=== PATIENT | female | born 1950 | race Caucasian/White ===

== ENCOUNTER → 2016-12-18 | Outpatient (CLI) | payer MEDICARE, OTHER ==
[~2016-12-18] MED LIST: ATOR40TA70 PO; CRAN500T2 PO; GLUC-144 PO; HYDR12.56 PO; LEVO112T55 PO; MULT-178 PO; OMEP-254 PO; OXYC-202 PO; QUIN20TA27 PO; RT-ALBUINH IH
--- NOTE | 2016-12-19 17:24 | Diagnostic Imaging Report ---
EXAMINATION: Bilateral digital screening mammogram with CAD. The current study was also evaluated with a Computer Aided Detection (CAD) system. INDICATION: Screening. No current complaints stated on the questionnaire. COMPARISON: 11/02/14. FINDINGS: The breasts are composed of heterogenously dense parenchyma which may decrease mammographic sensitivity. Occasional benign-appearing calcifications are seen. Stable circumscribed oval nodule in the inferior medial periareolar region in the left breast is without change from 2015 exam, likely a cyst. Allowing for technique and positional differences, no suspicious change is seen. IMPRESSION: Dense breasts with no definite change. ACR BI-RADS Category 2: Benign findings. Result letter will be mailed to the patient. Note: At least 10% of breast cancer is not imaged by mammography. Dictated by: Dictated on workstation # [id number]
== END ==
LOC: RAD 15:15
PROVIDERS: ATTEND Internal Medicine
DX: Z12.31 Encounter for screening mammogram for malignant neoplasm of breast (principal)
CPT/HCPCS: 77067

== ENCOUNTER → 2017-06-06 | Outpatient (CLI) | payer MEDICARE, OTHER ==
[~2017-06-06] MED LIST changes: +QUIN20TA16 PO; -QUIN20TA27 PO; +RT-ALBUTEROL SULF 2.5 MG/3 ML PRE-MIX VIAL IH ONE
== END ==
LOC: RT 14:03
PROVIDERS: ATTEND Internal Medicine
DX: J44.9 Chronic obstructive pulmonary disease, unspecified (principal)
CPT/HCPCS: 94060; 94726; 94729

== ENCOUNTER 2017-07-01 05:41 | Outpatient (CLI) | payer MEDICARE, OTHER ==
[~2017-07-01] VITALS: Ht 160 cm; Wt 90.7 kg
[~2017-07-01 05:41] MED LIST changes: -RT-ALBUTEROL SULF 2.5 MG/3 ML PRE-MIX VIAL IH ONE
== END 2017-07-01 14:13 ==
LOC: PREOP 05:41
PROVIDERS: ATTEND Surgery
DX: Z01.818 Encounter for other preprocedural examination (principal); Z12.11 Encounter for screening for malignant neoplasm of colon

== ENCOUNTER 2017-07-08 06:59 | Day surgery (SDC) | payer MEDICARE, OTHER ==
[~2017-07-08] VITALS: Ht 160 cm; Wt 90.7 kg
[2017-07-08] MEDS ORDERED: LACTATED RINGERS 1,000 ML IV ONE (07:00)
--- OUTSIDE RECORDS SUMMARY | 2017-07-08 07:02 | XMS REPORT | Clinical Summary ---
Author Author [facility] Address Unknown Phone Unavailable Support Name Relationship Address Phone , Contact,No ECON Unknown Allergies No Known Allergies Current Medications Prescription Sig. Disp. Refills Start End Date Status Date MAGNESIUM PO Take by mouth. Active Multiple Take by mouth. Active Vitamins-Minerals (OSTEO COMPLEX PO) triamcinolone (KENALOG) Apply topically 2 (two) Active 0.1 % cream times daily. Apply to affected area twice daily. PROAIR HFA 108 (90 BASE) INHALE 1 TO 2 PUFFS 8.5 g 3 11/04/19 Active MCG/ACT inhaler BEFORE EXERCISE NEEDED 14 pantoprazole (PROTONIX) TAKE 1 TABLET BY MOUTH 30 tablet 3 12/01/19 Active 40 MG tablet EVERY DAY 14 quinapril (ACCUPRIL) 20 TAKE 1 TABLET BY MOUTH 90 tablet 3 12/14/19 Active MG tablet EVERY DAY 14 hydrochlorothiazide TAKE 1 CAPSULE BY MOUTH 90 capsule 3 12/14/19 Active (MICROZIDE) 12.5 MG EVERY DAY 14 capsule atorvastatin (LIPITOR) 40 TAKE 1 TABLET BY MOUTH 30 tablet 3 12/14/19 Active MG tablet EVERY DAY 14 levothyroxine (SYNTHROID, Take 1 tablet (112 mcg 90 tablet 1 03/15/20 Active LEVOTHROID) 112 MCG total) by mouth daily. 14 tablet Hospital, Clinic, or Ordered Dose Route Frequency Start End Date Status Other Facility Date Administered Medication diphth-acell 0.5 mL IM Once 04/23/20 Active pertussis-tetanus(Tdap) 13 adult (ADACEL) injection 0.5 mLIndications: Need for prophylactic vaccination with combined quoolzpurk-eywhptn-khteyb sis (DTP) vaccine Active Problems Problem Noted Date Hypothyroid Gastroesophageal reflux disease Hyperlipidemia Hypertension Seasonal allergies Immunizations Name Dates Previously Given Next Due Influenza IIV3 PFree 04/23/2012 Tdap 04/23/2013 Family History Medical History Relation Name Comments Breast cancer Daughter Primary Sclorosing colongitis Diabetes Maternal Grandfather Hypertension Maternal Grandmother Breast cancer Mother later in life Heart disease CAD-fathers side of family Hypertension fathers side of family Relation Name Status Comments Daughter Maternal Grandfather Maternal Grandmother Mother Social History Tobacco Use Types Packs/Day Years Used Date Former Smoker Sex Assigned at Date Recorded Not on file Last Filed Vital Signs Vital Sign Reading Time Taken Blood Pressure 126/80 04/23/2013 8:05 AM CDT Pulse 72 04/23/2013 8:05 AM CDT Temperature - - Respiratory Rate - - Oxygen Saturation - - Inhaled Oxygen - - Concentration Weight 91.2 kg (201 lb) 04/23/2013 8:05 AM CDT Height 160 cm (5' 3") 04/23/2013 8:05 AM CDT Body Mass Index 35.61 04/23/2013 8:05 AM CDT Plan of Treatment Health Maintenance Due Date Last Done Comments Hepatitis C Screening 1950 Colon Cancer Screening 10/24/1999 Zoster Vaccine (#1) 2009 Pneumo-Adult (1 of 2 - 2014 PCV13) Breast Cancer 08/06/2015 08/06/2013, 08/05/2013, 08/02/2013, Screening-Mammogram Additional history exists Influenza Vaccine (#1) 2017 04/23/2012 DTaP,Tdap,and Td Vaccines 04/23/2023 04/23/2013 (2 - Td) Results Not on filefrom Last 3 Months
--- OUTSIDE RECORDS SUMMARY | 2017-07-08 07:03 | XMS REPORT | Continuity of Care Document ---
Author Author [facility] [employer]. Organization [facility]. Address Unknown Phone Unavailable Allergies Active Description Code Type Severity Reaction Onset Reported/Identified Relationship to Patient Clinical Status Yes No Known Drug Allergies [id number] Drug Allergy Unknown N/A 07/28/2015 Medications There is no data. Problems Date Dx Coded Attending Type Code Diagnosis Diagnosed By 11/25/2014 JUDD MACIAS DO Ot V76.12 07/31/2015 DARRELL MIRELES, GORDO Estrada Ot N84.0 POLYP OF CORPUS UTERI 07/31/2015 DARRELL MIRELES, GORDO Estrada Ot N95.0 POSTMENOPAUSAL BLEEDING 01/09/2017 JUDD MACIAS DO Ot Z12.31 ENCNTR SCREEN MAMMOGRAM FOR MALIGNANT NE 06/06/2017 JUDD MACIAS DO Ot Z12.31 ENCNTR SCREEN MAMMOGRAM FOR MALIGNANT NE Procedures There is no data. Results There is no data. Encounters ACCT No. Visit Date/Time Discharge Status Pt. Type Provider Facility Loc./Unit Complaint [id number] 07/30/2013 07:40:00 07/30/2013 23:59:59 CLS Outpatient [id number] 07/23/2013 09:39:00 07/23/2013 23:59:59 CLS Outpatient [id number] 06/06/2017 14:03:00 06/06/2017 23:59:59 CLS Outpatient JORGITO MACIAS DOI [facility] RT J44.9 COPD [id number] 12/18/2016 15:15:00 12/18/2016 23:59:59 CLS Outpatient COLLEEN HEATON JUDD [facility] RAD Z12.31 SCREENING [id number] 11/07/2016 15:05:00 11/07/2016 23:59:59 CLS Preadmit COLLEEN HEATON JUDD [facility] RAD Z12.31 [id number] 07/31/2015 06:18:00 07/31/2015 11:10:00 DIS Outpatient GORDO RAMÍREZ MD [facility] SDC POST MENAPAUSAL BLEEDING [id number] 07/28/2015 12:18:00 07/28/2015 23:59:59 CLS Outpatient GORDO RAMÍREZ MD [facility] PREOP [id number] 10/28/2014 09:41:00 10/28/2014 23:59:59 CLS Outpatient JUDD MACIAS DO [facility] RAD [id number] 07/08/2017 09:00:00 PEN Preadmit CJ COTTO DO [facility] ENDO SCREENING
--- OUTSIDE RECORDS SUMMARY | 2017-07-08 07:03 | XMS REPORT | Clinical Summary ---
Author Author User, [employer] Faby Salvador DO, FRANKLYNP Address Unknown Phone Allergies, Adverse Reactions, Alerts Allergy Name Reaction Description Start Date Severity Status Provider No Known Allergies [place] Main Conditions or Problems Problem Name Problem Code Onset Date Status Entry Date Provider Comment Standard Description Annotate HYPOTHYROIDISM, PRIMARY 244.9 Active Faby Salvador Unspecified hypothyroidism HYPERTENSION 401.1 Active Faby Salvador Benign essential hypertension GERD 530.81 Active Faby Salvador Esophageal reflux OVERACTIVE BLADDER 596.51 Active Faby Salvador Hypertonicity of bladder HYPERCHOLESTEROLEMIA 272.0 Active Faby Salvador Pure hypercholesterolemia HYPERGLYCEMIA 790.29 Active Linda Palmer Other abnormal glucose HEALTH SCREENING V70.0 Active Faby Salvador Routine general medical examination at a health care facility Medication List Medication Instructions Start Date Stop Date Generic Name NDC Status Provider Patient Instruction PROTONIX 40 MG TBEC 1 po qd PANTOPRAZOLE SODIUM 87127301175 Active Faby Salvador CRANBERRY CONCENTRATE CAPS 1 PO daily prn CRANBERRY CAPS 95629987824 Active Faby Salvador CALCIUM CITRATE + D TABS 2 PO DAILY CALCIUM CITRATE-VITAMIN D TABS 87582317856 Active Faby Salvador MULTIVITAMINS TABS 1 PO QD MULTIPLE VITAMIN Active Faby Salvador [facility] GLUCOSAMINE-CHONDROITIN CAPS 2 PO DAILY GLUCOSAMINE- CHONDROITIN CAPS 39274686596 Active Faby Salvador TRIAMCINOLONE ACETONIDE 0.1 % CREA Apply to lower legs every casie at HS 01/20 TRIAMCINOLONE ACETONIDE 87221605480 Active Faby Salvador PROAIR HFA 108 (90 BASE) MCG/ACT AERS Inhale 1 to 2 Puffs PO before exercise prn ALBUTEROL SULFATE 90632633947 Active Faby Salvador HYDROCHLOROTHIAZIDE 12.5 MG CAPS 1 PO DAILY HYDROCHLOROTHIAZIDE 26002684399 Active Fayb Salvador LEVOTHYROXINE SODIUM 112 MCG TABS 1 PO DAILY LEVOTHYROXINE SODIUM 70713145423 Active Faby Salvador LIPITOR 40 MG TABS 1 PO DAILY ATORVASTATIN CALCIUM 72855392585 Active Faby Salvador ACCUPRIL 20 MG TABS 1 PO DAILY QUINAPRIL HCL 28535125288 Active Faby Savlador Immunizations Vaccine Administration Date Value Standard Description Influenza vaccine given Done influenza virus vaccine, unspecified formulation Vital Signs Date Name Value Unit Range Description blood pressure, diastolic - 8462-4 90 mm[Hg] BP [place]ack blood pressure, systolic - 8480-6 135 mm[Hg] BP sys pulse rate E&M - 8867-4 72 /min Heart rate respiratory rate E&M - 9279-1 14 /min Resp rate temperature E&M 98.6 [degF] Body temperature weight E&M - 3141-9 210 [lb_av] Weight Measured blood pressure, diastolic - 8462-4 90 mm[Hg] BP [place] blood pressure, systolic - 8480-6 170 mm[Hg] BP sys pulse rate E&M - 8867-4 76 /min Heart rate respiratory rate E&M - 9279-1 14 /min Resp rate temperature E&M 98.6 [degF] Body temperature weight E&M - 3141-9 200 [lb_av] Weight Measured Diagnostic Results Date Name Value Unit Range Description Clinical Lists Update: CBC,CMP,FLP,TSH,Free T4,HgA1c - Chemistry Estimated Glomerular Filtration Rate (calc) 55 mL/min/1.73m2 albumin, serum 4.1 g/dL cholesterol/HDL ratio, serum, percent 4.4 anion gap, serum 11 sodium, serum 140 mmol/L triglyceride, serum, fasting 146 mg/dL bilirubin, serum, total 0.6 mg/dL alanine aminotransferase (SGPT), serum 21 U/L aspartate aminotransferase (SGOT), serum 15 U/L protein, total, serum 6.4 g/dL potassium, serum 4.1 mmol/L LDL cholesterol, serum 131 mg/dL thyroid stimulating hormone, serum 0.46 u[iU]/mL hemoglobin A1C, blood, as % of total hemoglobin 5.8 % HDL cholesterol, serum 47.0 mg/dL thyroxine, serum, free 1.07 ng/dL creatinine, serum 1.1 mg/dL carbon dioxide, venous blood 29.0 mmol/L cholesterol, serum 207 mg/dL chloride, serum 104 mmol/L calcium, serum 10.0 mg/dL urea nitrogen, blood 26 mg/dL alkaline phosphatase, serum 58 U/L glucose, plasma fasting 104 mg/dL Encounters Code Encounter Date Provider Facility CPT-88651 Ofc Vst, New Level III 15:04:10 CDT Faby Salvador DO, FACP Procedures Code Procedure Name Date Entry Date Standard Description CPT-70950 Preventive, Est, (40-64) 17:18:04 CDT
[2017-07-08] MEDS ORDERED: LACTATED RINGERS 1,000 ML IV STA (07:08)
[2017-07-08 07:22] VITALS: BP 147/86
[2017-07-08] MEDS ORDERED: PROPOFOL INJECTION 50 ML IV ONE (07:28)
[2017-07-08] MEDS ORDERED: MIDAZOLAM 2 MG/2 ML (VERSED) VIAL ONE (07:28)
--- NOTE | 2017-07-08 08:00 | Progress Note-Pre Operative ---
Pre-Operative Progress Note H&P Reviewed The H&P was reviewed, patient examined and no changes noted. Date Seen by Provider: Jul 08, 2017 Time Seen by Provider: 07:59 Date H&P Reviewed: Jul 08, 2017 Time H&P Reviewed: 08:00 Pre-Operative Diagnosis: screening colonoscopy CJ COTTO DO Jul 08, 2017 08:00
--- NOTE | 2017-07-08 08:26 | Progress Note-Post Operative ---
Post-Operative Progess Note Surgeon (s)/Ophthalmic Technician Apprentice (s) Surgeon CJ COTTO DO Ophthalmic Technician Apprentice: na Pre-Operative Diagnosis screening colonoscopy Post-Operative Diagnosis normal colon Procedure & Operative Findings Date of Procedure 07/08/17 Procedure Performed/Findings colonoscopy Anesthesia Type per bus escort Estimated Blood Loss Estimated blood loss (mL): na Specimens/Packing Specimens Removed na CJ COTTO DO Jul 08, 2017 08:26
--- NOTE | 2017-07-08 08:28 | Discharge Inst-Simple/Standard ---
Discharge Inst-Standard Patient Instructions/Follow Up Plan of Care/Instructions/FU: repeat colonoscopy 10 years any problems before that be seen at that time. If family hx colon cancer repeat colonoscopy in 5 years. Activity as Tolerated: Yes Discharge Diet: Regular Diet (high fiber) CJ COTTO DO Jul 08, 2017 08:28
[2017-07-08 08:35] VITALS: BP 135/75
[2017-07-08 09:05] VITALS: BP 135/87
[2017-07-08 09:10] VITALS: BP 135/87
--- NOTE | 2017-07-08 12:47 | OPERATIVE REPORT ---
DATE OF SERVICE: 07/08/2017 PREOPERATIVE DIAGNOSIS: Screening colonoscopy. POSTOPERATIVE DIAGNOSIS: Normal colon. PROCEDURE: Colonoscopy. SURGEON: Cj Daniels DO ANESTHESIA: Per FIXTURE REPAIRER FABRICATOR. ESTIMATED BLOOD LOSS: None. COMPLICATIONS: None. INDICATIONS: The patient is a 66-year-old female due for screening colonoscopy. She understands risks and benefits of procedure and wished to proceed with procedure. Consent was signed in the chart. PROCEDURE: The patient was taken to the endoscopy suite, placed in left lateral recumbent position. Timeout was performed. Digital rectal exam was performed and there were no palpable polyps, masses or ulcerations. Scope was inserted in the rectum and advanced all the way to the cecum with minimal difficulty. Prep was adequate. There were no polyps, mass or ulcerations of the cecum, ascending, transverse, descending and sigmoid colon. Once in the rectum, scope was also retroflexed noting no other pathology. Scope was returned to its normal position, slowly withdrawn until completely removed. The patient tolerated procedure well without any complications. She was taken to recovery room in stable condition. RECOMMENDATIONS: The patient will need repeat colonoscopy in 10 years unless family history of colon cancer which would then be 5 years. If she has any problems prior to that, she should be seen at that time. Job ID: [id number] DocumentID: [id number] Dictated Date: 07/08/2017 09:17:38 Library Associate Date: 07/08/2017 12:47:02 Dictated By: CJ DANIELS DO
== END 2017-07-08 09:10 | disposition home or self-care (01) ==
LOC: ENDO 06:59
PROVIDERS: ATTEND Surgery
DX: Z12.11 Encounter for screening for malignant neoplasm of colon (principal); J45.909 Unspecified asthma, uncomplicated; E07.9 Disorder of thyroid, unspecified; I10 Essential (primary) hypertension; K21.9 Gastro-esophageal reflux disease without esophagitis; K44.9 Diaphragmatic hernia without obstruction or gangrene; E66.9 Obesity, unspecified; Z68.35 Body mass index [BMI] 35.0-35.9, adult; Z87.891 Personal history of nicotine dependence; Z79.899 Other long term (current) drug therapy

== ENCOUNTER → 2017-11-28 | Outpatient (CLI) | payer MEDICARE, OTHER ==
[~2017-11-28] VITALS: Ht 162.6 cm; Wt 90.7 kg
[~2017-11-28] MED LIST changes: +ASPI-999 PO; +CATHETER FLUSH 10 ML SYR IV PRN; +LISI1TAB8 PO; +MONT10TA24 PO; +REGADENOSON 0.4 MG/5 ML SYR (LEXISCAN) IV ONE
[2017-11-28 08:14] VITALS: BP 163/86
--- NOTE | 2017-11-28 10:49 | STRESS TEST ---
DATE OF SERVICE: 11/28/2017 RESTING AND POST EXERCISE TECHNETIUM-99M TETROFOSMIN SPECT CT IMAGING ORDERING PHYSICIAN: Faby Salvador DO. CLINICAL DIAGNOSIS: Chest pain. Baseline images were carried out after injection of 10.11 mCi technetium-99m Tetrofosmin. This was followed by exercise on treadmill. Rancho protocol was employed, but the patient exercised only for a total of 2 minutes and 59 seconds and attained 4.4 METS of workload. The study was carried out under Dr. Salvador's supervision and is reported separately by her. Apparently, the test had to be stopped on account of fatigue and the patient did exhibit a brief, up to 3-beat runs of wide complex tachycardia. Review of images at rest and following stress indicates a minimal anterior perfusion defect that appears transient. Gated images show normal global left ventricular systolic function with normal regional wall motion with left ventricular ejection fraction calculated to be 78%. Left ventricular end diastolic volume is 41 mL. TID is absent (0.91). CONCLUSIONS This study is indicative of a small amount of anterior ischemia. The study is suboptimal on account of low exercise capacity. Left ventricular ejection fraction is calculated to be 78%. Job ID: [id number] DocumentID: [id number] Dictated Date: 11/28/2017 10:00:27 Precise Winder Date: 11/28/2017 10:48:42 Dictated By: YANN GLASGOW MD, MA, FACP, FACC, MTDD
== END ==
LOC: CARD 06:59
PROVIDERS: ATTEND Internal Medicine
DX: R07.9 Chest pain, unspecified (principal)
CPT/HCPCS: 78452; 93017; 93306

== ENCOUNTER → 2017-12-09 | Outpatient (CLI) | payer MEDICARE, OTHER ==
[~2017-12-09] MED LIST changes: -CATHETER FLUSH 10 ML SYR IV PRN; -REGADENOSON 0.4 MG/5 ML SYR (LEXISCAN) IV ONE
--- NOTE | 2017-12-09 13:35 | Diagnostic Imaging Report ---
INDICATION: Screening. The current study was also evaluated with a Computer Aided Detection (CAD) system. COMPARISON: Comparison made with prior examinations from 12/08/2016 back through 10/28/2014. 3D tomosynthesis was also performed and reviewed. FINDINGS: There is heterogeneously dense fibroglandular tissue bilaterally. There are a few benign-type calcifications. There is no dominant mass, spiculated lesion, or suspicious calcification identified. The skin, nipples, and axillae are unremarkable. IMPRESSION: Benign. ACR BI-RADS Category 2: Benign findings. Result letter will be mailed to the patient. Note: At least 10% of breast cancer is not imaged by mammography. Dictated by: Dictated on workstation # [id number]
== END ==
LOC: RAD 09:57
PROVIDERS: ATTEND Internal Medicine
DX: Z12.31 Encounter for screening mammogram for malignant neoplasm of breast (principal)
CPT/HCPCS: 77067

== ENCOUNTER 2017-12-16 06:52 | Day surgery (SDC) | payer MEDICARE, OTHER ==
[~2017-12-16] VITALS: Ht 162.6 cm; Wt 90.7 kg
[2017-12-16] VITALS (10 sets, daily range): BP systolic 112–142; BP diastolic 60–85
[~2017-12-16 06:52] MED LIST changes: -ASPI-999 PO; -LISI1TAB8 PO; -MONT10TA24 PO
[2017-12-16] MEDS ORDERED: HEParin (CATH LAB) 2,000 ML IV ONE (07:07)
[2017-12-16] MEDS ORDERED: NS IV 1000 ML 1,000 ML ONE (07:07)
[2017-12-16] MEDS ORDERED: LIDOCAINE 1% INJ 20 ML 20 ML VIAL ONE (07:07)
--- OUTSIDE RECORDS SUMMARY | 2017-12-16 07:11 | XMS REPORT | Clinical Summary ---
Author Author [facility] Address Unknown Phone Unavailable Care Team Providers Care Artificial Cherry Maker Name Role Phone Sagrario Gardner MD PP Allergies No Known Allergies Current Medications Prescription [...] Date Administered Medication diphth-acell 0.5 mL IM ONCE 04/23/20 Active pertussis-tetanus(Tdap) 13 adult (ADACEL) injection 0.5 mLIndications: Need for prophylactic vaccination with combined kvtseysvxb-nvjvken-jjpoiq sis (DTP) vaccine Active Problems Problem Noted [...] Screening 1950 Colon Cancer Screening 10/24/1999 Zoster Recombinant 10/24/1999 Vaccine (RZV,Shingrix) (1 of 2 - [facility] 2 Dose Standard) Pneumo-Adult (1 of 2 - 2014 PCV13) Breast Cancer 08/06/2015 08/06/2013, 08/05/2013, 08/02/2013, Screening-Mammogram Additional history exists Influenza Vaccine (Season 03/07/2018 04/23/2012 Ended) DTaP,Tdap,and Td Vaccines 04/23/2023 04/23/2013 (2 - Td) Results Not on filefrom Last 3 Months
--- OUTSIDE RECORDS SUMMARY | 2017-12-16 07:12 | XMS REPORT | Continuity of Care Document ---
Author Author [facility] [employer]. Organization [facility]. Address Unknown Phone Unavailable Allergies Active Description Code Type Severity Reaction Onset Reported/Identified Relationship to Patient Clinical Status Yes No Known Drug Allergies [id number] Drug Allergy Unknown N/A 07/28/2015 Medications There is no data. Problems Date Dx Coded Attending Type Code Diagnosis Diagnosed By 11/25/2014 JUDD MACIAS DO, Ot V76.12 07/31/2015 DARRELL MIRELES, GORDO Estrada Ot N84.0 POLYP OF CORPUS UTERI 07/31/2015 DARRELL MIRELES, GORDO Estrada Ot N95.0 POSTMENOPAUSAL BLEEDING 01/09/2017 JUDD MACIAS DO Ot Z12.31 ENCNTR SCREEN MAMMOGRAM FOR MALIGNANT NE 06/06/2017 JUDD MACIAS DO Ot Z12.31 ENCNTR SCREEN MAMMOGRAM FOR MALIGNANT NE 07/01/2017 CJ COTTO DO Ot Z01.818 ENCOUNTER FOR OTHER PREPROCEDURAL EXAMIN 07/01/2017 CJ COTTO DO Ot Z12.11 ENCOUNTER FOR SCREENING FOR MALIGNANT NE 07/01/2017 JUDD MACIAS DO Ot J44.9 CHRONIC OBSTRUCTIVE PULMONARY DISEASE, U 07/02/2017 CJ COTTO DO Ot Z01.818 ENCOUNTER FOR OTHER PREPROCEDURAL EXAMIN 07/02/2017 CJ COTTO DO Ot Z12.11 ENCOUNTER FOR SCREENING FOR MALIGNANT NE 07/08/2017 CJ COTTO DO Ot E07.9 DISORDER OF THYROID, UNSPECIFIED 07/08/2017 CJ COTTO DO Ot E66.9 OBESITY, UNSPECIFIED 07/08/2017 CJ COTTO DO Ot I10 ESSENTIAL (PRIMARY) HYPERTENSION 07/08/2017 CJ COTTO DO Ot J45.909 UNSPECIFIED ASTHMA, UNCOMPLICATED 07/08/2017 CJ COTTO DO Ot K21.9 GASTRO-ESOPHAGEAL REFLUX DISEASE WITHOUT 07/08/2017 CJ COTTO DO Ot K44.9 DIAPHRAGMATIC HERNIA WITHOUT OBSTRUCTION 07/08/2017 CJ COTTO DO Ot Z12.11 ENCOUNTER FOR SCREENING FOR MALIGNANT NE 07/08/2017 CJ COTTO DO Ot Z68.35 BODY MASS INDEX (BMI) 35.0-35.9, ADULT 07/08/2017 CJ COTTO DO Ot Z79.899 OTHER [facility] (CURRENT) DRUG THERAPY 07/08/2017 CJ COTTO DO Ot Z87.891 PERSONAL HISTORY OF NICOTINE DEPENDENCE 07/10/2017 CJ COTTO DO Ot E07.9 DISORDER OF THYROID, UNSPECIFIED 07/10/2017 CJ COTTO DO Ot E66.9 OBESITY, UNSPECIFIED 07/10/2017 CJ COTTO DO Ot I10 ESSENTIAL (PRIMARY) HYPERTENSION 07/10/2017 CJ COTTO DO Ot J45.909 UNSPECIFIED ASTHMA, UNCOMPLICATED 07/10/2017 CJ COTTO DO Ot K21.9 GASTRO-ESOPHAGEAL REFLUX DISEASE WITHOUT 07/10/2017 CJ COTTO DO Ot K44.9 DIAPHRAGMATIC HERNIA WITHOUT OBSTRUCTION 07/10/2017 CJ COTTO DO Ot Z12.11 ENCOUNTER FOR SCREENING FOR MALIGNANT NE 07/10/2017 CJ COTTO DO Ot Z68.35 BODY MASS INDEX (BMI) 35.0-35.9, ADULT 07/10/2017 CJ COTTO DO Ot 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 Results There is no data. Encounters ACCT No. Visit Date/Time Discharge Status Pt. Type Provider Facility Loc./Unit Complaint [id number] 07/30/2013 07:40:00 07/30/2013 23:59:59 CLS Outpatient [id number] 07/23/2013 09:39:00 07/23/2013 23:59:59 CLS Outpatient [id number] 10/28/2014 09:41:57 ACT Document Registration [id number] 11/28/2017 06:59:00 11/28/2017 23:59:59 CLS Outpatient MACIAS DO, JUDD [facility] CARD CHEST PAIN IN ADULT [id number] 11/13/2017 14:24:00 11/13/2017 23:59:59 CLS Preadmit MACIAS DO, JUDD [facility] RAD SCREENING [id number] 07/08/2017 06:59:00 07/08/2017 09:10:00 DIS Outpatient CJ COTTO DO [facility] ENDO SCREENING [id number] 07/01/2017 05:41:00 07/01/2017 14:13:00 DIS Outpatient CJ COTTO DO [facility] PREOP COLONOSCOPY [id number] 06/06/2017 14:03:00 06/06/2017 23:59:59 CLS Outpatient MACIAS DO, JUDD [facility] RT J44.9 COPD [id number] 12/18/2016 15:15:00 12/18/2016 23:59:59 CLS Outpatient MACIAS DO, JUDD [facility] RAD Z12.31 SCREENING [id number] 11/07/2016 15:05:00 11/07/2016 23:59:59 CLS Preadmit MACIAS DO, JUDD [facility] RAD Z12.31 [id number] 07/31/2015 06:18:00 07/31/2015 11:10:00 DIS Outpatient GORDO RAMÍREZ MD [facility] SDC POST MENAPAUSAL BLEEDING [id number] 07/28/2015 12:18:00 07/28/2015 23:59:59 CLS Outpatient GORDO RAMÍREZ MD [facility] PREOP [id number] 10/28/2014 09:41:00 10/28/2014 23:59:59 CLS Outpatient MACIAS DO, JUDD [facility] SHIRLEY
[2017-12-16] MEDS ORDERED: NS IV 1000 ML 1,000 ML IV SCH ×2 (07:15→09:30)
[2017-12-16 07:28] LABS: HEMOGLOBIN 14.7 G/DL (11.5-16.0); MEAN PLATELET VOLUME 10.1 FL (7.4-10.4); RED BLOOD COUNT 4.81 10^6/uL (4.35-5.85); WHITE BLOOD COUNT 7.3 10^3/uL (4.3-11.0)
[2017-12-16] MEDS ORDERED: LISI1TAB8 PO (07:33)
[2017-12-16] MEDS ORDERED: MONT10TA24 PO (07:33)
[2017-12-16 07:39] LABS: PROTHROMBIN TIME PATIENT 12.6 SEC (12.2-14.7)
[2017-12-16] MEDS ORDERED: MIDAZOLAM 5 MG/5 ML (VERSED) VIAL ONE (07:43)
[2017-12-16] MEDS ORDERED: fentaNYL INJECTION 100 MCG/2 ML AMP ONE (07:43)
[2017-12-16] MEDS ORDERED: diphenhydrAMINE 50 MG/ML INJ (BENADRYL) ONE (07:44)
[2017-12-16 07:48] LABS: ALANINE AMINOTRANSFERASE 33 U/L (0-55); ALBUMIN 4.2 GM/DL (3.2-4.5); ALKALINE PHOSPHATASE 64 U/L (40-136); BILIRUBIN,TOTAL 0.5 MG/DL (0.1-1.0); BUN/CREATININE RATIO 20; CALCIUM 9.9 MG/DL (8.5-10.1); CARBON DIOXIDE 21 MMOL/L (21-32); CHLORIDE 109 MMOL/L (98-107); CHOLESTEROL 180 MG/DL (< 200); CREATININE SERUM 0.92 MG/DL (0.60-1.30); GFR ESTIMATED > 60; GLUCOSE 104 MG/DL (70-105); HDL CHOLESTEROL 45 MG/DL (40-60); SODIUM 141 MMOL/L (135-145); TRIGLYCERIDES 131 MG/DL (<150); VLDL CHOLESTEROL 26 MG/DL (5-40)
--- NOTE | 2017-12-16 09:29 | Cardiac Procedure Note-CS/ASA ---
Pre-Procedure Note Pre-Op Procedure Note H&P Reviewed The H&P was reviewed, patient examined and no changes noted. Date H&P Reviewed: Dec 16, 2017 Time H&P Reviewed: 08:45 Conscious Sedation Pre-Proced Time Reviewed: 08:45 ASA Class: 3 Airway Mallampati Classification: (telida appropriate class) I. II. III, IV Lungs Heart ASA score ASA 1: a normal healthy patient ASA 2: a patient with a mild systemic disease (mid diabetes, controlled hypertension, obesity ASA 3: a patient with a severe systemic disease that limits activity (angina , COPD, prior Myocardial infarction) ASA 4: a patient with an incapacitating disease that is a constant threat to life (CHF, renal failure) ASA 5: a moribund patient not expected to survive 24 hrs. (ruptured aneurysm) ASA 6: a declared brain patient whose organs are being harvested. For emergent operations, add the letter E after the classification Grade 3 Sedation Plan: Analgesia, Amnesia, Plan communicated to team members, Discussed options with patient/fam, Discussed risks with patient/fam Note The patient is an appropriate candidate to undergo the planned procedure, sedation, and anesthesia. The patient immediately re-assessed prior to indication. YANN GLASGOW MD FACP FACC CCDS Dec 16, 2017 09:29
[2017-12-16] MEDS ORDERED: PATIENT MAY USE OWN MEDS, ALL PO SCH (09:30)
[2017-12-16] MEDS ORDERED: ASPI-999 PO (09:33)
--- NOTE | 2017-12-16 09:33 | Discharge Inst-Post CATH ---
Discharge Inst-CATH Post Cardiac Cath D/C Inst Follow Up/Plan F/u with Dr Jensen in 2 weeks CARDIAC CATH DISCHARGE INSTRUCTIONS *Hold Metformin for 48 hours post heart cath. ACTIVITY * Go Home directly and rest. * Limit activity of the leg (or wrist if it was used) for 7 days including aerobics, swimming, jogging, bicycling, etc. * Restrict stair-climbing for 7 days if possible, if not, climb up with your non -cath leg, then bring together on the same step. * Avoid lifting, pushing, pulling or excessive movement of the affected extremity for 7 days. * Customary sexual activity may be resumed after 2 days-use caution not to use a position that strains or causes pain to the affected extremity. * No driving for 24 hours. * NO SMOKING. * Avoid straining for bowel movements for 7 days. * Gentle walking on level ground is allowed. * Returning to work will depend on the type of procedure and the results. Your doctor will discuss this with you. CALL YOUR DOCTOR FOR ANY OF THE FOLLOWING: *If bleeding from the puncture site occurs- Apply gentle pressure to site with clean cloth and call your doctor or EMS. * If a knot or lump forms under the skin, increases in size, or causes pain. * If bruising appears to be worsening or moving further down your leg instead of disappearing. * Temperature above 101 F. CARE OF YOUR GROIN INCISION; * Bruising or purple discoloration of the skin near the puncture site is common. * You may shower only, no bathtub bathing for 5 days. Be careful to avoid slipping as your leg may feel stiff. * If a closure device was used on your femoral artery, please see the attached guide regarding care of the device and your leg. * REMOVE the dressing from your groin the next day after your procedure in the shower. CARE OF YOUR WRIST INCISION; * Bruising or purple discoloration of the skin near the puncture site is common. * You may shower. * DO NOT submerge wrist. * Remove dressing in 24 hours. YANN JENSEN MD [facility] Dec 16, 2017 09:33
--- NOTE | 2017-12-16 09:34 | Discharge Inst-Cardiology ---
Discharge Inst-Cardiac Discharge Medications New Medications: Aspirin (Aspirin) 81 Mg Tab.chew 81 MG PO DAILY for 90 Days, #90 TAB 3 Refills Continued Medications: Albuterol Sulfate (Proair Hfa) 8.5 Gm Hfa.aer.ad 2 PUFF IH Q4H PRN for WHEEZING, GM Atorvastatin Calcium (Atorvastatin Calcium) 40 Mg Tablet 40 MG PO HS, TAB Levothyroxine Sodium (Levothyroxine Sodium) 112 Mcg Tablet 112 MCG PO DAILY, TAB Lisinopril/Hydrochlorothiazide (Lisinopril-Hctz 20-12.5 mg Tab) 1 Each Tablet 1 EACH PO DAILY, TAB Montelukast Sodium (Montelukast Sodium) 10 Mg Tablet 10 MG PO DAILY, TAB Multivitamin (Multiple Vitamins) 1 Each Tablet 1 EACH PO DAILY, TAB Omeprazole Magnesium (Omeprazole Magnesium) 20 Mg Capsule. 20 MG PO DAILY, YANN BRODERICK MD FACP [facility] Dec 16, 2017 09:34
--- NOTE | 2017-12-16 10:24 | CARDIAC CATHETERIZATION ---
DATE OF SERVICE: 12/16/2017 INDICATION: The patient is a 67-year-old lady, who has multiple coronary artery disease risk factors, has had chest discomfort, and a recent myocardial perfusion imaging study was indicative of anterior ischemia. Cardiac catheterization was carried out today after having obtained informed consent. DESCRIPTION OF PROCEDURE: She was brought to the cardiac catheterization laboratory in a fasting state. Right groin was prepared and draped in usual sterile fashion. A 1% lidocaine used for local anesthesia. Modified Seldinger technique was used to advance a 5-Cymro sheath in right femoral artery, 5-Cymro JL4 catheter used for left coronary angiography, 5-Cymro JR4 catheter used for right coronary angiography, 5-Cymro pigtail catheter used for left heart catheterization and left ventricular angiography. Angiography of the right femoral artery was carried out through the sheath. Mynx was used to achieve hemostasis. She tolerated the procedure well. HEMODYNAMICS: Left ventricular end-diastolic pressure was 14 mmHg. There is no significant pressure gradient on pullback across the aortic valve. Ascending aortic pressure was 108/61 with a mean of 81 mmHg. LEFT VENTRICULAR ANGIOGRAPHY: Left ventricular angiography was carried out in the right anterior oblique projection only. Global left ventricular systolic function is normal. No regional wall motion abnormality was seen. Left ventricular ejection fraction was approximately 65%. There does not appear to be significant mitral regurgitation. CORONARY ANGIOGRAPHY: Left main coronary, left anterior descending artery, left circumflex artery, right coronary artery do not exhibit any significant obstructive disease. Mild plaques are seen in the left coronary system. Right coronary artery is dominant. CONCLUSIONS: 1. Angiographically mild coronary artery disease. 2. Normal global left ventricular systolic function, ejection fraction 65%. 3. Left ventricular end-diastolic pressure at the top limit of normal to mildly elevated. 4. No significant mitral regurgitation is seen on this study. DISCUSSION AND RECOMMENDATIONS: Based on the results of the study, it appears appropriate to continue a conservative approach. Risk factor modification has been reviewed. Outpatient followup is advised. Based on the results of the study, the myocardial perfusion study appears to have been a false positive study. Job ID: [id number] DocumentID: [id number] Dictated Date: 12/16/2017 09:24:30 [employer] Worker Date: 12/16/2017 10:23:18 Dictated By: YANN GLASGOW MD, MA, FACP, FACC,
== END 2017-12-16 13:05 | disposition home or self-care (01) ==
LOC: CATH 06:52 → SURG 09:43 → CATH 13:05
PROVIDERS: ATTEND Internal Medicine Cardiovascular Disease
DX: I25.10 Atherosclerotic heart disease of native coronary artery without angina pectoris (principal); I10 Essential (primary) hypertension; E78.5 Hyperlipidemia, unspecified; J45.909 Unspecified asthma, uncomplicated; I08.1 Rheumatic disorders of both mitral and tricuspid valves; K21.9 Gastro-esophageal reflux disease without esophagitis; E07.9 Disorder of thyroid, unspecified; Z82.49 Family history of ischemic heart disease and other diseases of the circulatory system; Z79.899 Other long term (current) drug therapy
CPT/HCPCS: 36415; 80053; 80061; 85027; 85610; 85730; 87081; 93458

== ENCOUNTER → 2017-12-22 | Outpatient (CLI) | payer MEDICARE, OTHER ==
[~2017-12-22] MED LIST changes: +ASPI-999 PO; +LISI1TAB8 PO; +MONT10TA24 PO
--- NOTE | 2017-12-22 10:00 | Diagnostic Imaging Report ---
Indication right groin pain and lump. Patient status post heart catheterization last Friday. Grayscale, color-flow and duplex Doppler evaluation of the right groin was performed. The right common femoral artery and common femoral vein are patent. No pseudoaneurysm is seen. There is a small hematoma in the right groin measuring 2.2 x 1.2 cm. No internal blood flow is present. No definite AV fistula is seen. Impression: Small right groin hematoma. Study is otherwise unremarkable. Dictated by: Dictated on workstation # [id number]
== END ==
LOC: RAD 08:47
PROVIDERS: ATTEND Nurse Practitioner Family
DX: S30.1XXA Contusion of abdominal wall, initial encounter (principal); Z95.828 Presence of other vascular implants and grafts
CPT/HCPCS: 93926

== ENCOUNTER → 2018-12-17 | Outpatient (CLI) | payer MEDICARE, OTHER ==
[~2018-12-17] MED LIST changes: -OXYC-202 PO; +OXYC1TAB12 PO
--- NOTE | 2018-12-17 19:24 | Diagnostic Imaging Report ---
INDICATION: Screening. EXAMINATION: Digital mammogram bilateral screening with 3-D tomosynthesis. The current study was also evaluated with a Computer Aided Detection (CAD) system. This study was compared to prior exams of 12/09/2017, 12/18/2016 and 04/05/2010. At this time, there are no current complaints. FINDINGS: The fibroglandular tissue in both breasts is heterogeneously dense. This does limit the sensitivity of this exam. Overall, there does not appear to have been any significant change when compared to the prior study. No primary or secondary sign of malignancy is noted. The 1.5 x 2.5 CM oval density in the 6 to 7 o'clock position of the left breast anterior depth seen on the previous study is again evident and no different. IMPRESSION: There is no radiographic evidence for malignancy. ACR BI-RADS Category 1: Negative. Result letter will be mailed to the patient. Note: At least 10% of breast cancer is not imaged by mammography. Dictated by: Dictated on workstation # [id number]
== END ==
LOC: RAD 15:11
PROVIDERS: ATTEND Internal Medicine
DX: Z12.31 Encounter for screening mammogram for malignant neoplasm of breast (principal)
CPT/HCPCS: 77067

== ENCOUNTER 2019-06-16 13:00 | Outpatient (CLI) | payer MEDICARE, OTHER ==
[~2019-06-16] VITALS: Ht 162 cm; Wt 90.9 kg
[2019-06-16] MEDS ORDERED: PANT40TA3 PO (13:28)
== END 2019-06-16 13:40 ==
LOC: PREOP 13:00
PROVIDERS: ATTEND Surgery
DX: Z01.818 Encounter for other preprocedural examination (principal)

== ENCOUNTER → 2020-03-20 | Outpatient (CLI) | payer MEDICARE, OTHER ==
[~2020-03-20] MED LIST changes: +LISI1TAB46 PO; -LISI1TAB8 PO; -MONT10TA24 PO; +MONT10TA26 PO; +PANT40TA3 PO
--- NOTE | 2020-03-20 12:00 | Diagnostic Imaging Report ---
INDICATION: Routine screening. COMPARISON: 12/17/2018 and 12/09/2017. TECHNIQUE: 2D and 3D bilateral screening mammography was performed with CAD. FINDINGS: Both breasts are heterogeneously dense, limiting the sensitivity of mammography. There are benign calcifications in both breasts. The retroareolar ovoid density in the medial left breast appears stable. No new mass or malignant appearing microcalcifications are identified. The axillae are unremarkable. IMPRESSION: No mammographic features suspicious for malignancy are identified. ACR BI-RADS Category 2: Benign findings. Result letter will be mailed to the patient. Note: At least 10% of breast cancer is not imaged by mammography. Dictated by: Dictated on workstation # [id number]
== END ==
LOC: RAD 10:15
PROVIDERS: ATTEND Internal Medicine
DX: Z12.31 Encounter for screening mammogram for malignant neoplasm of breast (principal)
CPT/HCPCS: 77063; 77067

== ENCOUNTER → 2021-06-15 | Outpatient (CLI) | payer MEDICARE, OTHER ==
[~2021-06-15] MED LIST changes: -CRAN500T2 PO; +CRAN500T3 PO; +MONT-40 PO; -MONT10TA26 PO; -PANT40TA3 PO; +PANT40TA52 PO
--- NOTE | 2021-06-15 10:47 | Diagnostic Imaging Report ---
INDICATION: Routine screening. COMPARISON is made with prior mammograms from 03/20/2020 and 12/17/2018. 2-D and 3-D bilateral screening mammography was performed with CAD. Both breasts remain heterogeneously dense, limiting the sensitivity of mammography. Nodular density in the retroareolar medial left breast appears stable. No new mass or malignant-appearing microcalcifications are seen. There are benign calcifications. Axillae are unremarkable. IMPRESSION: BI-RADS Category 2 No mammographic features suspicious for malignancy are identified. ACR BI-RADS Category 2: Benign findings. Result letter will be mailed to the patient. Note: At least 10% of breast cancer is not imaged by mammography. Dictated by: Dictated on workstation # [id number]
== END ==
LOC: RAD 09:00
PROVIDERS: ATTEND Internal Medicine
DX: Z12.31 Encounter for screening mammogram for malignant neoplasm of breast (principal)
CPT/HCPCS: 77063; 77067